=== PATIENT | male | born 1985 | race Caucasian/White ===

== ENCOUNTER → 2019-04-02 | Outpatient (REF) ==
--- NOTE | 2019-04-02 15:49 | REP ---
REASON: Disability. PRIORS: None. Four limited views were obtained. Vertebral body height and alignment is within normal limits. The facet joints are well aligned bilaterally. The disc spaces are symmetric and well maintained. IMPRESSION: Negative limited exam. Electronically Signed by Rolf Kurtz DO 04/02/2019 05:09 P
--- NOTE | 2019-04-02 19:00 | REP ---
REASON FOR EXAM: Disability. PRIORS: None. There is a mild distal thoracic dextroconvex curve. Vertebral body height is within normal limits. There is mild anterior disc space narrowing and anterior lipping. The pedicles are intact bilaterally. IMPRESSION: Chronic changes as described above. Electronically Signed by Rolf Kurtz DO 04/03/2019 09:33 A
== END ==
LOC: M SMT 13:17
PROVIDERS: ATTEND Internal Medicine
DX: M51.34 Other intervertebral disc degeneration, thoracic region (principal)

== ENCOUNTER → 2021-08-25 | Outpatient (REF) | payer OTHER | LOC: M SMT 13:22 | PROVIDERS: ATTEND Urology | DX: Z30.2 Encounter for sterilization (principal) ==

== ENCOUNTER 2023-05-27 00:08 | Emergency (ER) | payer MEDICARE, OTHER ==
[~2023-05-27] VITALS: Ht 177.8 cm; Wt 90.0 kg
[2023-05-27 01:07] LABS: HEMATOCRIT 45.1 % (42.0-52.0); HEMOGLOBIN 15.5 g/dl (13.5-17.5); MEAN CORPUSCULAR HEMOGLOBIN 29.5 pg (27.0-33.0); MEAN CORPUSCULAR HGB CONC 34.4 g/dl (32.0-36.5); MEAN CORPUSCULAR VOLUME 85.7 fl (80.0-96.0); PLATELET COUNT, AUTOMATED 208 10^3/uL (150-450); RED BLOOD COUNT 5.26 10^6/uL (4.30-6.10); WHITE BLOOD COUNT 12.1 10^3/uL (4.0-10.0)
[2023-05-27 01:27] LABS: METHADONE URINE NEGATIVE (NEGATIVE); OPIATES URINE NEGATIVE (NEGATIVE)
[2023-05-27 01:28] LABS: AMPHETAMINES LEVEL URINE NEGATIVE (NEGATIVE); BARBITURATES URINE NEGATIVE (NEGATIVE); BENZODIAZEPINES URINE NEGATIVE (NEGATIVE); CANNABINOIDS URINE NEGATIVE (NEGATIVE); COCAINE METABOLITE URINE NEGATIVE (NEGATIVE); PHENCYCLIDINE URINE NEGATIVE (NEGATIVE)
[2023-05-27 01:31] LABS: ACETAMINOPHEN LEVEL < 2.0 UG/ML (10.0-20.0)
[2023-05-27 01:32] LABS: ALBUMIN 3.8 G/DL (3.2-5.2); ALKALINE PHOSPHATASE 82 U/L (46-116); ALT/SGPT 96 U/L (7.0-40); AST/SGOT 58 U/L (<34); BILIRUBIN,DIRECT 0.1 MG/DL (<0.4); BILIRUBIN,TOTAL 0.4 MG/DL (0.3-1.2); BLOOD UREA NITROGEN 14 MG/DL (9-23); CARBON DIOXIDE LEVEL 22 MMOL/L (20-31); CHLORIDE LEVEL 98 MMOL/L (98-107); CREATININE FOR GFR 0.78 MG/DL (0.70-1.30); GLOMERULAR FILTRATION RATE > 60.0 (>60); GLUCOSE, FASTING 246 MG/DL (60-100); POTASSIUM SERUM 3.4 MMOL/L (3.5-5.1); SALICYLATE LEVEL < 3.0 MG/DL (<30); SODIUM LEVEL 134 MMOL/L (136-145); TOTAL PROTEIN 7.1 G/DL (5.7-8.2)
[2023-05-27 01:34] LABS: THYROID STIMULATING HORMONE 1.138 uIU/ML (0.55-4.78)
[2023-05-27] MEDS ORDERED: MORPHINE 10 MG/ML 1ML VIAL IM ONE ×2 (02:25→07:40)
[2023-05-27] MEDS ORDERED: GABAPENTIN 300 MG CAP PO ONE (02:25)
[2023-05-27] MEDS ORDERED: PERCOCET 5MG/325MG TAB PO ONE ×2 (04:35→14:00)
[2023-05-27] MEDS ORDERED: AMIT25TA19 PO (06:20)
[2023-05-27] MEDS ORDERED: IBUP80TA PO (06:20)
[2023-05-27] MEDS ORDERED: PANT40TA29 PO (06:20)
[2023-05-27] MEDS ORDERED: GABA800T4 PO (06:20)
[2023-05-27] MEDS ORDERED: METF10004 PO (06:20)
[2023-05-27] MEDS ORDERED: TRUL10IN PO (06:20)
[2023-05-27] MEDS ORDERED: HYDR-3713 PO (06:20)
[2023-05-27] MEDS ORDERED: PARO30TA4 PO (06:20)
[2023-05-27] MEDS ORDERED: LISI10TA22 PO (06:20)
[2023-05-27] MEDS ORDERED: HOME MED LIST COMPLETE! XX SCH (06:25)
[2023-05-27] MEDS ORDERED: KETOROLAC 60MG 2ML VIAL IM ONE (07:40)
[2023-05-27] MEDS ORDERED: KETOROLAC TROMETHAMINE 10 MG TAB PO PRN (12:55)
[2023-05-27] MEDS ORDERED: PERCOCET 5MG/325MG TAB PO PRN (12:55)
[2023-05-27] MEDS ORDERED: KETOROLAC TROMETHAMINE 10 MG TAB PO ONE (14:00)
[2023-05-27] MEDS: metFORMIN (GLUCOPHAGE) 1000MG TABLET PO SCH (21:09)
[2023-05-27] MEDS: AMITRIPTYLINE 25MG TABLET PO SCH (21:09)
[2023-05-27] MEDS: GABAPENTIN 400MG CAP PO SCH (21:09)
[2023-05-27] MEDS: ANEXSIA, NORCO 7.5MG/325MG TABLET(HYDROCODONE/APAP) PO PRN (22:26)
[2023-05-28] MEDS: ANEXSIA, NORCO 7.5MG/325MG TABLET(HYDROCODONE/APAP) PO PRN ×3 (08:54→21:38)
[2023-05-28] MEDS: metFORMIN (GLUCOPHAGE) 1000MG TABLET PO SCH ×2 (08:55→21:29)
[2023-05-28] MEDS: GABAPENTIN 400MG CAP PO SCH ×3 (08:55→21:29)
[2023-05-28] MEDS: PARoxetine 10MG TABLET PO SCH (08:55)
[2023-05-28] MEDS: PANTOPRAZOLE 40MG TAB (PROTONIX) PO SCH (08:55)
[2023-05-28] MEDS: AMITRIPTYLINE 25MG TABLET PO SCH (21:29)
[2023-05-29] MEDS: ANEXSIA, NORCO 7.5MG/325MG TABLET(HYDROCODONE/APAP) PO PRN (06:31)
[2023-05-29] MEDS: PANTOPRAZOLE 40MG TAB (PROTONIX) PO SCH (08:33)
[2023-05-29] MEDS: metFORMIN (GLUCOPHAGE) 1000MG TABLET PO SCH (08:33)
[2023-05-29] MEDS: GABAPENTIN 400MG CAP PO SCH (08:33)
[2023-05-29] MEDS: PARoxetine 10MG TABLET PO SCH (10:39)
[2023-05-29 11:55] VITALS: BP 146/93; TEMP 97.7; O2SAT 98
== END 2023-05-29 12:01 | disposition home or self-care (01) ==
LOC: M ED 00:08
DX: F43.21 Adjustment disorder with depressed mood (principal); G89.4 Chronic pain syndrome; R45.851 Suicidal ideations; M54.50 Low back pain, unspecified; F10.10 Alcohol abuse, uncomplicated; Z79.811 Long term (current) use of aromatase inhibitors; Z79.891 Long term (current) use of opiate analgesic; Z79.899 Other long term (current) drug therapy
CPT/HCPCS: 73110; 73130; 80048; 80076; 80143; 80307; 82077; 84443; 85027; 87635; 96372; 99284; J1885

== ENCOUNTER → 2024-01-23 | Outpatient (CLI) | payer OTHER ==
[~2024-01-23] MED LIST: AMIT25TA19 PO; GABA800T4 PO; HYDR-3713 PO; IBUP80TA PO; LISI10TA22 PO; METF10004 PO; PANT40TA29 PO; PARO30TA4 PO; TRUL10IN PO
== END ==
LOC: M RAD 09:08
PROVIDERS: ATTEND Neurological Surgery
DX: M47.24 Other spondylosis with radiculopathy, thoracic region (principal); Z95.828 Presence of other vascular implants and grafts